=== PATIENT | male | born 1975 | race Caucasian/White ===

== ENCOUNTER 2016-10-17 07:30 | Emergency (ER) | payer OTHER ==
[~2016-10-17] VITALS: Ht 177.8 cm; Wt 95.3 kg
--- NOTE | ~2016-10-17 | EKG ---
[address] [address] [place] [address] ELECTROCARDIOGRAM REPORT Name: YAHIRIRMA Room #: KIMBER Craig#: [id number] Admission: 10/17/16 Attend Phys: Discharge: 10/17/16 Date of : 75 Report #: [id number] THIS REPORT FOR: //name// [facility] ED Test Date: 2016-10-17 Test Time: 08:23:11 Pat Name: IRMA SINCLAIR Department: Room: Gender: Anodic Treater: : 1975 Requested By: Oswaldo Huggins Order Number: [id number] MD: Chau Barton Measurements Intervals [place] Rate: 71 P: 25 WY: 158 QRS: 25 QRSD: 85 T: 23 QT: 355 QTc: 386 Interpretive Statements Sinus rhythm Abnormal R-wave progression, early transition Baseline wander in lead(s) III No previous ECG available for comparison Electronically Signed On 10-18-2016 8:19:26 CDT by Chau Barton [email or web address] <ELECTRONICALLY SIGNED> By: Chau Barton MD, [facility] 10/18/16818 2 2 Chau Barton MD, [facility] /EPI
[2016-10-17] MEDS ORDERED: LOMOTIL TABLET1 EACH PO (07:37)
[2016-10-17] MEDS ORDERED: LISINOPRIL10 MG PO (07:37)
[2016-10-17] MEDS ORDERED: XANAX 0.5 MG0.5 MG PO (07:38)
[2016-10-17 08:07] LABS: HEMATOCRIT 46.8 % (42.0-52.0); HEMOGLOBIN 16.5 gm/dL (14.0-18.0); MCH 31.9 pg (26.0-34.0); MCHC 35.2 g/dL (28.0-37.0); MCV 90.7 fL (80.0-100.0); RBC 5.16 mil/uL (4.50-6.00); RDW 13.7 % (10.5-14.5); WBC 9.3 thou/uL (4.0-11.0)
[2016-10-17 08:09] LABS: CALCIUM 9.5 mg/dL (8.5-10.1); CREATININE 1.1 mg/dL (0.7-1.3); POTASSIUM 3.7 mmol/L (3.5-5.1)
[2016-10-17 08:43] VITALS: BP 121/82
== END 2016-10-17 08:44 | disposition home or self-care (01) ==
LOC: ER 07:30
PROVIDERS: Emergency Medicine
DX: R20.2 Paresthesia of skin (principal); I10 Essential (primary) hypertension; F17.210 Nicotine dependence, cigarettes, uncomplicated